=== PATIENT | female | born 1950 | race Caucasian/White ===

== ENCOUNTER 2017-11-15 05:27 | Day surgery (SDC) | payer MEDICARE ==
[~2017-11-15] VITALS: Ht 162.6 cm; Wt 111.1 kg
--- NOTE | ~2017-11-15 | O ---
[facility] [place] [address] OPERATIVE REPORT Name: LOREN LUU Room #: DEP [facility].#: [id number] Admission: 11/15/17 Attend Phys: Timothy Tucker MD Discharge: 11/15/17 Date of : 50 Report #: [id number] THIS REPORT FOR: //name// CC: Physician staff AYE Tucker DATE OF SERVICE: 11/15/2017 SURGEON: Timothy Tucker M.D. TRANSPORTATION PROJECT MANAGER: None. PREOPERATIVE DIAGNOSIS: Bilateral lower lid ectropion. POSTOPERATIVE DIAGNOSIS: Bilateral lower lid ectropion. OPERATION PERFORMED: Bilateral lower lid ectropion repair. ANESTHESIA: Local with IV sedation. COMPLICATIONS: None. INDICATIONS FOR PROCEDURE: This patient has bilateral acquired lower lid ectropion with chronic tearing and discharge. The current procedures are undertaken in order to improve the patient's visual function, lacrimal outflow, and level of comfort. Informed consent was obtained to include but not limit to the risk of loss of vision, bleeding, infection, scarring, failure to improve the problem and need for further surgery. DESCRIPTION OF OPERATION: The patient was taken to the operating room where 2% Xylocaine with epinephrine mixed with equal parts of 0.75% Marcaine with Wydase was administered transcutaneously and transconjunctivally to each lower lid and lateral canthal area. The patient was then prepped and draped in the usual sterile fashion. A Frank clamp was then used to clamp the left lateral canthus following which a sharp canthotomy and cantholysis were performed. The tarsal strip was prepared laterally, removing the lash bearing portion of the redundant lid margin and the redundant tarsal plate. Hemostasis was achieved with a monopolar cautery, as it was throughout the case. The tarsal strip was then secured to the internal portion of the lateral orbital tubercle with two interrupted 5-0 Prolene sutures. The lateral canthal angle was sharply reformed as the subcutaneous structures and the skin were closed with multiple interrupted 6-0 plain gut sutures. Attention was then turned to the right side where the same procedure was [facility] [address] [place] [address] OPERATIVE REPORT Name: LOREN LUU Room #: DEP [facility].#: [id number] Admission: 11/15/17 Attend Phys: Timothy Tucker MD Discharge: 11/15/17 Date of : 50 Report #: [id number] performed. The wounds were cleaned and dressed with ophthalmic antibiotic ointment. The patient was then transported to the recovery area, having tolerated the procedure well with no anesthetic or operative complications being noted. <ELECTRONICALLY SIGNED> By: Timothy Tucker MD 11/19/17 [id number] [id number] Timothy Tucker MD /nt
[~2017-11-15 05:27] MED LIST: ADVAIR HFA 230M12 GM INH; ASPIR 8181 MG PO; CALCIUM 500 +1 EAC5 PO; FISH OIL 1,001000 M2 PO; MOBIC7.5 MG PO; MULTIVITAMINS PO; NEXIUM20 MG PO; PEPCID20 MG PO; PROZAC20 MG PO; SIMVASTATIN40 MG PO; SINGULAIR 10 MG10 M1 PO; SYNTHROID137 MC1 PO; VITAMIN C1000 MG PO
[2017-11-15 09:48] VITALS: BP 153/73
== END 2017-11-15 09:44 | disposition home or self-care (01) ==
LOC: OR 05:27 → TBA 05:28 → OR 09:44
DX: H02.105 Unspecified ectropion of left lower eyelid (principal); H02.102 Unspecified ectropion of right lower eyelid; E78.00 Pure hypercholesterolemia, unspecified; J45.909 Unspecified asthma, uncomplicated; G47.33 Obstructive sleep apnea (adult) (pediatric); K21.9 Gastro-esophageal reflux disease without esophagitis; E03.9 Hypothyroidism, unspecified; Z98.890 Other specified postprocedural states; Z87.19 Personal history of other diseases of the digestive system; Z90.710 Acquired absence of both cervix and uterus; Z96.653 Presence of artificial knee joint, bilateral; Z87.891 Personal history of nicotine dependence; Z96.642 Presence of left artificial hip joint; Z79.82 Long term (current) use of aspirin; Z79.899 Other long term (current) drug therapy
CPT/HCPCS: 50010; 50101; 50386; 50398; 51636; 56527; 56531; 62110; 62850; 70005